=== PATIENT | male | born 1990 | race Caucasian/White ===

== ENCOUNTER 2018-05-20 00:21 | Emergency (ER) | payer MEDICAID ==
[~2018-05-20] VITALS: Ht 175.3 cm; Wt 72.6 kg
--- NOTE | 2018-05-20 00:28 | NUR ---
Dr. Koch at bedside for MSE.
[2018-05-20] MEDS ORDERED: [UNRECOGNIZED DRUG - REMARK] (00:47)
[2018-05-20] MEDS ORDERED: LORAZEPAM 0.5 MG TABLET PO ONE (01:15)
[2018-05-20] MEDS ORDERED: LORAZEPAM 1 MG TABLET ONE (01:25)
[2018-05-20 01:50] LABS: CREATININE 1.1 mg/dL (0.6-1.3); POTASSIUM 4.9 mmol/L (3.5-5.1)
--- NOTE | 2018-05-20 02:30 | NUR ---
MSE COMPLETED, IV D/C'D INTACT. ACI GIVEN. PT AMBULATED W/O DIFF/TOOK ALL BELONGINGS, FRIEND CALLED FOR RIDE.
[2018-05-20 02:31] VITALS: BP 121/66
== END 2018-05-20 02:32 | disposition home or self-care (01) ==
LOC: ER 00:21
DX: G40.909 Epilepsy, unspecified, not intractable, without status epilepticus (principal); Z79.899 Other long term (current) drug therapy
CPT/HCPCS: 36415; A4663